=== PATIENT | male | born 1990 | race Caucasian/White ===

== ENCOUNTER 2017-10-20 08:51 | Emergency (ER) | payer MEDICAID ==
--- NOTE | 2017-10-20 09:06 | ED Physician Documentation ---
History of Present Illness - Stated complaint Stated Complaint: BUMP IN GROIN AREA - Chief complaint Chief Complaint: Laceration - History obtained from History obtained from: Patient (pt is here with 4 days of redness and swelling to the left side of his groin. states that it has been worsening since then. no fevers. has hd similar sx to this in the past and has had to have an abscess drained in the past. no hx of STD's and no concern about that now. no problems urinating or having BM's.) Review of Systems Constitutional: denies: Fever, Chills Cardiac: denies: Chest pain / pressure GI: denies: Abdominal Pain, Abdominal Swelling, Nausea, Vomiting, Constipation, Diarrhea, Bloody / black stool : reports: Other (redness pain and swelling to the left groin area). denies: Dysuria, Frequency, Incontinent, Testicular pain Skin: reports: Other (redness o the left groin). denies: Rash, Lesions, Laceration (s) Musculoskeletal: reports: Extremity pain, Joint pain, Joint swelling Neurologic: denies: Focal weakness, Headache PD PAST MEDICAL HISTORY - Past Medical History Respiratory: Pneumonia - Past Surgical History Past Surgical History: No - Present Medications Home Medications: Ambulatory Orders Medication Instructions Recorded Confirmed Cephalexin [Keflex] 500 mg PO Q6H #28 capsule 10/20/17 Sulfamethox/Trimeth 800/160 1 each PO BID #14 tablet 10/20/17 [Bactrim Ds 800/160] - Allergies Allergies/Adverse Reactions: Allergies Allergy/AdvReac Type Severity Reaction Status Date / Time propoxyphene HCl * Allergy Respiratory Verified 10/20/17 08:55 [From Sakshi] - Social History Does the pt smoke?: Yes Smoking Status: Current every day smoker Does the pt drink ETOH?: No Does the pt have substance abuse?: No - Immunizations Immunizations are current?: No Immunizations: TDAP >10years/unknown - POLST Patient has POLST: No PD ED PE NORMAL - Vitals Vital signs reviewed: Yes - General General: Alert and oriented X 3, No acute distress, Well developed/nourished - HEENT HEENT: Moist mucous membranes - Cardiac Cardiac: No murmur. No: RRR (tachycardic to 107 but regular) - Respiratory Respiratory: No respiratory distress, Clear bilaterally - Abdomen Abdomen: Normal bowel sounds, Soft, Non tender, Non distended - Derm Derm: Other (redness and swelling 8 CM with 5 cm induration to the juction of the left hip and mary, no drainage, TTP ) - Neuro Neuro: Alert and oriented X 3 Eye Opening: Spontaneous Motor: Obeys Commands Verbal: Oriented GCS Score: 15 - Psych Psych: Normal mood, Normal affect PD ED PE EXPANDED - Male Male : Circumcised, Skin lesions (redness as described in the skin area ), Testes descended parrish, Normal lie/cremastaric, Photovoltaic Installer present. No: Discharge , Testicular Mass, Tenderness Results - Vitals Vitals: Vital Signs - 24 hr 10/20/17 10/20/17 08:53 11:10 Temperature 36.6 C Heart Rate 107 H 68 Respiratory 16 16 Rate Blood Pressure 143/81 H 120/79 O2 Saturation 97 100 Oxygen O2 Source Room air - Labs Labs: Laboratory Tests 10/20/17 10/20/17 09:20 09:20 WBC 15.1 H RBC 5.27 Hgb 15.7 Hct 46.0 MCV 87.4 MCH 29.7 MCHC 34.0 RDW 13.2 Plt Count 252 MPV 8.2 Neut # 10.3 H Lymph # 3.2 [place] # 1.1 H Eos # 0.3 Baso # 0.1 Absolute Nucleated RBC 0.01 Nucleated RBC % 0.0 Sodium 135 Potassium 3.7 Chloride 104 Carbon Dioxide 21 Anion Gap 10.0 BUN 10 Creatinine 0.8 Estimated GFR (MDRD) 114 Glucose 107 H Calcium 9.1 - Rads (name of study) CT pelvis Radiology: Final report received PD MEDICAL DECISION MAKING - ED course Complexity details: d/w patient ED course: Discussed case with Dr staley (urology) who recommended surgical drainage and IV ABX. pt ws given 2g rocephin in the ER. [facility] is full so we contacted [facility] and I talked with TROY Feldman (urology) who accepted the patient. While waiting for transfer the pt stated that he did not want to go to [facility] because it was too far. That is the closest option because of other hospitals are full. Pt is A&O x3 and in my opinion has the capacity to make decisions. We discussed that he has an abscess that needs drainage and because of the are it needs to be done by a urologist. I informed him that oral antibiotics would probably not treat this infection and that things my get worse to the point of needing a more invasive surgery, spread to his penis and testicles or other areas of his body, worsening infection to the point that he could become septic and . He expressed understanding and still wants to go home. He states that he has 5 kids and no one to take care of them. He was given return precautions and instructed to follow up with his primary care provider tomorrow Departure - Departure Disposition: Home, Self Care Clinical Impression: Scrotal abscess Condition: Stable Instructions: ED Abscess Abx Tx Only Ch Follow-Up: Primary, care provider [Other] Prescriptions: Cephalexin [Keflex] 500 mg PO Q6H #28 capsule Sulfamethox/Trimeth 800/160 [Bactrim Ds 800/160] 1 each PO BID #14 tablet Comments: You need to take your medications as instructed. You need to contact your primary care provider today for an appointment tomorrow. You are signing out against medical advise and were informed that this infection needs surgical drainage. You have decided to not be sent to a facility that has urology and opted to take the oral antibiotics. You were informed that this is probably not going to treat the infection and that without the drainage the infection may worsen and spread and cause problems to include loss of your penis or testicles or worsening infection and possibly . You may return to the ER at any point for new or worsening symptoms,.
[2017-10-20] MEDS ORDERED: SODIUM CHLORIDE 0.9% 1,000 ML IV ONE ×2 (09:12→11:08)
[2017-10-20] MEDS ORDERED: HYDROcod/ACETAM 5/325 MG TABLET PO STA (09:12)
[2017-10-20 09:33] LABS: BASOPHILS # (AUTO) 0.1 10^3/uL (0.0-0.1); BASOPHILS % (AUTO) 0.8 %; EOSINOPHILS # (AUTO) 0.3 10^3/uL (0.0-0.7); EOSINOPHILS % (AUTO) 2.3 %; HGB - HEMOGLOBIN 15.7 g/dL (14.0-18.0); LYMPHOCYTES # (AUTO) 3.2 10^3/uL (1.5-3.5); LYMPHOCYTES % (AUTO) 21.3 %; MEAN CORPUSCULAR HEMOGLOBIN 29.7 pg (27.0-31.0); MEAN CORPUSCULAR VOLUME 87.4 fL (80.0-94.0); MEAN PLATELET VOLUME 8.2 fL (7.4-11.4); MONOCYTES # (AUTO) 1.1 10^3/uL (0.0-1.0); MONOCYTES % (AUTO) 7.1 %; NEUTROPHILS # (AUTO) 10.3 10^3/uL (1.5-6.6); NEUTROPHILS % (AUTO) 68.5 %; RED BLOOD COUNT 5.27 10^6/uL (4.70-6.10); RED CELL DISTRIBUTION WIDTH 13.2 % (12.0-15.0); UNCORRECTED WHITE BLOOD COUNT 15.1 x10^3/uL; WHITE BLOOD COUNT 15.1 x10^3/uL (4.8-10.8)
[2017-10-20 09:35] LABS: CALCIUM 9.1 mg/dL (8.5-10.3); CREATININE 0.8 mg/dL (0.6-1.2); POTASSIUM 3.7 mmol/L (3.5-5.0)
[2017-10-20] MEDS ORDERED: IOPAMIDOL-300 100 ML VIAL ONE (09:35)
[2017-10-20] MEDS ORDERED: HYDROcod/ACETAM 5/325 MG TABLET ONE (09:40)
--- NOTE | 2017-10-20 10:14 | CT Preliminary Report ---
Exam: CT PELVIS W/ IMPRESSION: Abscess in the region of the superior left scrotum with a maximal diameter of 5 cm. No thomas bcutaneous gas. [facility] SITE ID: [id number]
--- NOTE | 2017-10-20 10:16 | CT Report ---
EXAM: CT PELVIS EXAM DATE: 10/20/2017 10:03 AM. CLINICAL HISTORY: Left groin abscess. COMPARISONS: 02/24/2013. TECHNIQUE: Routine helical CT imaging was performed through the pelvis. IV contrast: 100ML ISOVUE 300 . Enteric contrast: No. Reconstructions: Coronal and sagittal. In accordance with CT protocol optimization, one or more of the following dose reduction techniques w ere utilized for this exam: automated exposure control, adjustment of mA and/or KV based on patient s ize, or use of iterative reconstructive technique. FINDINGS: Visualized Abdominal Organs: Normal. Peritoneal Cavity/Bowel: Normal. No free fluid, free air or adenopathy. No masses or acute inflammato ry process. The appendix is well visualized and normal. Pelvic Organs: Normal. The bladder, rectum, and visualized pelvic organs are within normal limits. Vasculature: No aneurysms or other significant abnormality. Bones: No significant abnormality. Other: Rim-enhancing fluid collection centered in the superior left scrotal wall measures 5 x 3 x 4 c m (axial image 63 and coronal image 23). There is adjacent inflammatory fat stranding. No subcutaneou s gas. Enlarged bilateral inguinal lymph nodes are likely reactive. IMPRESSION: Abscess in the region of the superior left scrotum with a maximal diameter of 5 cm. No thomas bcutaneous gas. [facility] Referring Provider Line: [phone] SITE ID: [id number]
[2017-10-20] MEDS ORDERED: IOPAMIDOL-300 100 ML VIAL IVP ONE (10:30)
[2017-10-20] MEDS ORDERED: cefTRIAXone 1 GM VIAL IM STA (10:59)
[2017-10-20] MEDS ORDERED: cefTRIAXone 2 GM VIAL ONE ×2 (11:08→11:12)
[2017-10-20 11:12] VITALS: BP 120/79
== END 2017-10-20 12:46 | disposition home or self-care (01) ==
LOC: ED 08:51
DX: N49.2 Inflammatory disorders of scrotum (principal); F17.200 Nicotine dependence, unspecified, uncomplicated
CPT/HCPCS: 36415; 72193; 80048; 85025; 96372; 99283; 99284; A9270; Q9967

== ENCOUNTER 2018-02-11 09:01 | Emergency (ER) | payer MEDICAID ==
[2018-02-11] MEDS ORDERED: IBUPROFEN 800 MG TABLET PO STA (09:16)
[2018-02-11] MEDS ORDERED: CLINDAMYCIN 900 MG/50 ML 50 ML IV ONE (09:16)
--- NOTE | 2018-02-11 09:20 | ED Physician Documentation ---
PD HPI HEENT - Stated complaint Stated Complaint: TOOTH PX - Chief complaint Chief Complaint: Heent - History obtained from History obtained from: Patient - History of Present Illness Timing - onset: How many days ago (4) Timing - duration: Days (4) Timing - details: Still present Location: Tooth Associated symptoms: Swollen nodes, Facial swelling Similar symptoms before: Diagnosis (Has prior history of dental abscess. The last time was about 2 years ago.) - Additional information Additional information: The patient is a 27-year-old male who has history of extensive dental decay, and who presents with pain in the right molar region, starting 4 days ago and getting progressively worse. He presents now with increased facial swelling, and with pain radiating to his right ear. He denies fever or headache. He denies shortness of breath. He has history of previous dental abscess, the last time being about 2 years ago. He denies methamphetamine use. Review of Systems Constitutional: denies: Fever Eyes: denies: Irritation Ears: reports: Ear pain (Right ear.) Nose: denies: Congestion Throat: reports: Dental pain / toothache. denies: Sore throat Respiratory: denies: Dyspnea, Cough GI: denies: Nausea, Vomiting Skin: denies: Rash Musculoskeletal: denies: Neck pain Neurologic: denies: Headache PD PAST MEDICAL HISTORY - Past Medical History Past Medical History: Yes Respiratory: Pneumonia Endocrine/Autoimmune: None - Past Surgical History Past Surgical History: No - Present Medications Home Medications: Ambulatory Orders Medication Instructions Recorded Confirmed Clindamycin HCl [Clindamycin 150MG 300 mg PO QID #56 capsule 02/11/18 CAP] HYDROcod/ACETAM 5/325 [[place] 5/325] 1 - 2 ea PO Q6H PRN #20 tablet 02/11/18 - Allergies Allergies/Adverse Reactions: Allergies Allergy/AdvReac Type Severity Reaction Status Date / Time propoxyphene HCl * Allergy Respiratory Verified 02/11/18 09:11 [From Sakshi] - Social History Does the pt smoke?: Yes Smoking Status: Current every day smoker Does the pt drink ETOH?: No Does the pt have substance abuse?: No - Immunizations Immunizations are current?: No Immunizations: TDAP >10years/unknown - POLST Patient has POLST: No PD ED PE NORMAL - Vitals Vital signs reviewed: Yes (Afebrile) - General General: Alert and oriented X 3, Well developed/nourished, Other (Ill kempt.) - HEENT HEENT: Atraumatic, EOMI, Ears normal, Pharynx benign, Other (There is swelling and tenderness to palpation in the right mandibular/submandibular region. He has widespread dental decay, including to right lower molars, with associated tenderness to palpation.) - Neck Neck: Supple, no meningeal sign, Other (Enlarged right anterior cervical nodes.) - Cardiac Cardiac: RRR, No murmur - Respiratory Respiratory: No respiratory distress, Clear bilaterally - Derm Derm: No rash - Neuro Neuro: Alert and oriented X 3, Normal speech Results - Vitals Vitals: Vital Signs - 24 hr 02/11/18 09:06 Temperature 36.3 C L Heart Rate 93 Respiratory 18 Rate Blood Pressure 133/80 H O2 Saturation 98 Oxygen O2 Source Room air PD MEDICAL DECISION MAKING - ED course Complexity details: reviewed old records, re-evaluated patient, considered differential, d/w patient ED course: The patient's presentation is significant for dental abscess with right submandibular swelling. This is similar to a presentation he had 2 years ago. Treatment in the emergency department included administration of clindamycin 900 mg IV, and ibuprofen 800 mg orally. He is being discharged with prescription for clindamycin and for Vicodin, 20 tablets. I discussed with him antibiotic treatment, outpatient follow-up with a dentist, as well as potentially worrisome signs or symptoms that should prompt reevaluation in the emergency department. Departure - Departure Disposition: 01 Home, Self Care Clinical Impression: Dental abscess Condition: Stable Instructions: ED Abscess Dental Follow-Up: [facility] [Provider Group] Prescriptions: Clindamycin HCl [Clindamycin 150MG CAP] 300 mg PO QID #56 capsule HYDROcod/ACETAM 5/325 [[place] 5/325] 1 - 2 ea PO Q6H PRN #20 tablet PRN Reason: Pain Comments: Take clindamycin 4 times daily as prescribed. You can use ibuprofen, up to 800 mg 3 times daily for its anti-inflammatory effect. You can use Vicodin as prescribed if needed for pain. Follow up with a dentist as soon as possible. Call to schedule appointment. Return to the emergency department if you develop increasing facial swelling, increasing difficulty swallowing, or otherwise worsening symptoms.
[2018-02-11 10:38] VITALS: BP 133/74
== END 2018-02-11 10:36 | disposition home or self-care (01) ==
LOC: ED 09:01
DX: K04.7 Periapical abscess without sinus (principal); F17.200 Nicotine dependence, unspecified, uncomplicated
CPT/HCPCS: 96374; 99283; A9270

== ENCOUNTER 2020-10-20 18:05 | Emergency (ER) | payer MEDICAID ==
[2020-10-20] MEDS ORDERED: LIDOCAINE 1%-EPI 1:100000 20 ML MDV SUBQ STA (18:52)
[2020-10-20] MEDS ORDERED: IBUPROFEN 800 MG TABLET PO STA (18:52)
[2020-10-20] MEDS ORDERED: TETANUS/DIPHTHERIA/PERTUSSIS 0.5 ML SYRINGE IM ONE (18:52)
[2020-10-20] MEDS ORDERED: BACITRACIN ZINC OINT 1 PACKET TOP STA (19:36)
[2020-10-20] MEDS ORDERED: cephALEXin 250 MG CAPSULE PO STA (19:36)
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
[2020-10-20 19:47] VITALS: BP 137/66
== END 2020-10-20 19:49 | disposition home or self-care (01) ==
LOC: ED 18:05
DX: S61.511A Laceration without foreign body of right wrist, initial encounter (principal); W25.XXXA Contact with sharp glass, initial encounter; Y92.009 Unspecified place in unspecified non-institutional (private) residence as the place of occurrence of the external cause; F17.200 Nicotine dependence, unspecified, uncomplicated; Z23 Encounter for immunization
CPT/HCPCS: 12002; 90471; 90715; 99283; 99284; A9270

== ENCOUNTER 2024-04-18 07:04 | Outpatient (CLI) | payer MEDICAID | END 2024-04-18 23:59 | disposition left against medical advice (07) | LOC: EMS 07:04 | DX: T40.411A Poisoning by fentanyl or fentanyl analogs, accidental (unintentional), initial encounter (principal); R06.89 Other abnormalities of breathing ==